=== PATIENT | male | born 1950 | race Caucasian/White ===

== ENCOUNTER 2024-08-31 21:48 | Emergency (ER) | payer MEDICAID ==
[~2024-08-31] VITALS: Ht 182.9 cm; Wt 90.7 kg
[2024-08-31] MEDS: IV NORMAL SALINE 1000 ML BAG IV ONE (23:15)
[2024-08-31] MEDS: LIDOCAINE 2% (GLYDO= UROJET) 10 ML JELLY MM ONE (23:15)
[2024-08-31 23:34] LABS: BASOPHILS % (AUTO) 0.3 % (0.0-2.0); EOSINOPHILS # (AUTO) 0.2 K/uL (0.0-0.7); EOSINOPHILS % (AUTO) 2.6 % (0.0-7.0); HEMATOCRIT 36.5 % (36.7-47.1); HEMOGLOBIN 12.2 g/dL (12.5-16.3); LYMPHOCYTES # (AUTO) 1.3 K/uL (0.8-4.8); MEAN CORPUSCULAR HEMOGLOBIN 29.6 uug (23.8-33.4); MEAN CORPUSCULAR HGB CONC 33 g/dL (32.5-36.3); MEAN CORPUSCULAR VOLUME 88.5 fL (73.0-96.2); MONOCYTES # (AUTO) 0.5 K/uL (0.1-1.30); MONOCYTES % (AUTO) 6.9 % (0.0-11.0); NEUTROPHILS % (AUTO) 71.2 % (38.5-71.5); PLATELET COUNT (AUTO) 160 K/uL (152-348); RED BLOOD CELL COUNT(AUTO) 4.13 MIL/uL (4.06-5.63); RED CELL DISTRIBUTION WIDTH 14.6 % (12.1-16.2)
[2024-08-31 23:50] LABS: AMMONIA 13 umol/L (11-32)
[2024-09-01 00:02] LABS: ALANINE AMINOTRANSFERASE 34 U/L (16-63); ALBUMIN 3.5 g/dL (3.4-5.0); ALKALINE PHOSPHATASE 288 U/L (50-136); ASPARTATE AMINOTRANSFERASE 23 U/L (15-37); BILIRUBIN,DIRECT 0.3 mg/dL (0.0-0.2); BILIRUBIN,TOTAL 1.1 mg/dL (0.2-1.0); CARBON DIOXIDE 31 mmol/L (21-32); CHLORIDE 105 mmol/L (98-107); CREATININE 0.7 mg/dL (0.6-1.3); GLUCOSE 110 mg/dL (74-106); NT-PRO BNP 901 pg/mL (0-125); POTASSIUM 4.2 mmol/L (3.5-5.1); SODIUM SERUM 145 mmol/L (136-145); TOTAL PROTEIN, SERUM 7.3 g/dL (6.4-8.2); UREA NITROGEN, BLOOD 17 mg/dL (7-18)
[2024-09-01 00:32] LABS: ACETAMINOPHEN < 10.0 ug/mL (10-30)
[2024-09-01 01:58] LABS: *BILIRUBIN,URIN NEGATIVE (NEGATIVE); *BLOOD, URINE NEGATIVE (NEGATIVE); *CLARITY,URINE CLEAR (CLEAR); *COLOR,URINE YELLOW (YELLOW); *KETONES,URINE TRACE (NEGATIVE); *PROTEIN,URINE NEGATIVE (NEGATIVE); *UROBILINOGEN,URINE 0.2 E.U./dl (NORMAL); LEUKOCYTE ESTERASE ,URINE NEGATIVE (NEGATIVE); NITRITE, URINE NEGATIVE (NEGATIVE); PH,URINE 5.5 (5.0-8.0); UGLUCOSE NEGATIVE (NEGATIVE)
[2024-09-01 02:08] LABS: BACTERIA,URINE FEW /HPF (NONE SEEN); CALCIUM OXALATE CRYSTALS,UR FEW /HPF (NONE SEEN); RBC,URINE 0-3 /HPF (0-3); SQUAMOUS EPITHELIAL CELL,UR FEW /HPF (NONE SEEN); WBC,URINE 0-3 /HPF (0-3)
[2024-09-01] MEDS ORDERED: levoFLOXacin 500 MG/D5W 100 ML ONE (02:11)
[2024-09-01] MEDS ORDERED: LEVO500T90 PO (02:17)
[2024-09-01] MEDS: levoFLOXacin 500 MG/D5W 100ML PIGGYBACK IV ONE (02:21)
[2024-09-01 04:26] VITALS: BP 112/66; TEMP 97.8; O2SAT 99
== END 2024-09-01 04:00 | disposition home or self-care (01) ==
LOC: ER 21:48
DX: J18.1 Lobar pneumonia, unspecified organism (principal); E11.9 Type 2 diabetes mellitus without complications; R94.31 Abnormal electrocardiogram [ECG] [EKG]; Z20.822 Contact with and (suspected) exposure to COVID-19
CPT/HCPCS: 99285; 70450; 71045; 96361; 80076; 80048; 82140; 83880; 85025; 87040 ×2; 84484; 36415; 93005 ×2; 80299; 80179; 96365; 87426; 87804; 81001; J1956; A4606; A4663; C1758

== ENCOUNTER 2025-08-15 16:53 | Emergency (ER) | payer MEDICAID ==
[~2025-08-15] VITALS: Ht 165.1 cm; Wt 59.0 kg
[~2025-08-15 16:53] MED LIST: LEVO-43 PO
[2025-08-15] MEDS: METRONIDAZOLE 500 MG/NS 100ML 100 ML IV ONE (17:15)
[2025-08-15] MEDS: IV NORMAL SALINE 1000 ML BAG IV ONE (17:15)
[2025-08-15 17:28] LABS: PLATELET COUNT (AUTO) 227 K/uL (152-348); RED BLOOD CELL COUNT(AUTO) 5.11 MIL/uL (4.06-5.63); RED CELL DISTRIBUTION WIDTH 15.6 % (12.1-16.2); WHITE BLOOD COUNT (AUTO) 13.3 K/uL (3.6-10.2)
[2025-08-15 17:37] LABS: ABG BASE EXCESS 6.1 mmol/L (-2.0-3.0); ABG HCO3 30.1 mmol/L (21.0-28.0); ABG PCO2 41.4 mmHg (35.0-48.0); ABG PH 7.480 (7.350-7.450); ABG PO2 66.0 mmHg (83.0-108.0); ABG SITE LEFT BRACHIAL; ABG TOTAL HEMOGLOBIN 15.1 G/dL (13.5-17.5); AaDO2 94.3 mmHg; FIO2 21.0 %; FLOW, BLOOD GAS 0.00 L/min (0.00-30.00)
[2025-08-15 17:39] LABS: CREATININE 1.0 mg/dL (0.6-1.3); SODIUM SERUM 147 mmol/L (136-145); UREA NITROGEN, BLOOD 35 mg/dL (7-18)
[2025-08-15 17:44] LABS: ASPARTATE AMINOTRANSFERASE 40 U/L (15-37); TOTAL PROTEIN, SERUM 6.4 g/dL (6.4-8.2)
[2025-08-15] MEDS ORDERED: CEFTRIAXONE /D5W 50ML IVPB **ER PYXIS IV ONE (18:10)
[2025-08-15] MEDS ORDERED: METRONIDAZOLE 500 MG/NS 100ML 100 ML IV ONE (18:10)
[2025-08-15] MEDS ORDERED: VANCOMYCIN IV 200 ML ONE (18:10)
[2025-08-15 18:12] LABS: *BILIRUBIN,URIN NEGATIVE (NEGATIVE); *BLOOD, URINE 3+ (NEGATIVE); *CLARITY,URINE CLEAR (CLEAR); *COLOR,URINE YELLOW (YELLOW); *KETONES,URINE NEGATIVE (NEGATIVE); *PROTEIN,URINE 1+ (NEGATIVE); *UROBILINOGEN,URINE 0.2 E.U./dl (NORMAL); LEUKOCYTE ESTERASE ,URINE NEGATIVE (NEGATIVE); NITRITE, URINE NEGATIVE (NEGATIVE); UGLUCOSE NEGATIVE (NEGATIVE)
[2025-08-15 18:21] LABS: SQUAMOUS EPITHELIAL CELL,UR FEW /HPF (NONE SEEN)
[2025-08-15] MEDS: VANCOMYCIN IV 1,000 MG in IV DEXTROSE 5% 250 ML IV ONE (19:00)
[2025-08-15] MEDS ORDERED: NITROGLYCERIN OINT 1 GM PACKET TP ONE (20:33)
[2025-08-15] MEDS ORDERED: IPRA4AER IH (21:14)
[2025-08-15] MEDS ORDERED: BUPR1FIL3 SL (21:14)
[2025-08-15] MEDS ORDERED: PRED2.5T PO (21:14)
[2025-08-15] MEDS ORDERED: GLIP5TAB23 PO (21:14)
[2025-08-15] MEDS ORDERED: METF-440 PO (21:14)
[2025-08-15] MEDS ORDERED: ATOR40TA PO (21:14)
[2025-08-15] MEDS ORDERED: ASPI81TA31 PO (21:14)
[2025-08-16 02:18] VITALS: BP 125/78; O2SAT 94
== END 2025-08-16 02:19 | disposition short-term general hospital (02) ==
LOC: ER 17:00
DX: S52.511A Displaced fracture of right radial styloid process, initial encounter for closed fracture (principal); L89.159 Pressure ulcer of sacral region, unspecified stage; E11.9 Type 2 diabetes mellitus without complications; E78.5 Hyperlipidemia, unspecified; F02.80 Dementia in other diseases classified elsewhere, unspecified severity, without behavioral disturbance, psychotic disturbance, mood disturbance, and anxiety; G20.C Parkinsonism, unspecified; G93.89 Other specified disorders of brain; I71.43 Infrarenal abdominal aortic aneurysm, without rupture; Z74.01 Bed confinement status; Z79.52 Long term (current) use of systemic steroids; Z79.82 Long term (current) use of aspirin; Z79.84 Long term (current) use of oral hypoglycemic drugs; X58.XXXA Exposure to other specified factors, initial encounter; Y93.89 Activity, other specified; Y92.89 Other specified places as the place of occurrence of the external cause; Y99.9 Unspecified external cause status
CPT/HCPCS: 29125; 36415; 36600; 70450; 71045; 72125; 72170; 72192; 73090; 73120; 80048; 80076; 81001; 82803; 83605; 83880; 84145; 84484; 85025; 85730; 87040; 87086; 87426; 93005; 96365; 96366; 96368; 99291; J0696; J3373; J3490; J7040; A4606; A4663